=== PATIENT | male | born 1980 | race Caucasian/White ===

== ENCOUNTER 2017-02-23 06:38 | Emergency (ER) | payer BC ==
[~2017-02-23] VITALS: Ht 167.6 cm; Wt 95.4 kg
[2017-02-23 06:38] VITALS: BP 142/83
[2017-02-23] MEDS ORDERED: Z PAK (06:47)
[2017-02-23] MEDS ORDERED: AMLO5TAB2 PO (06:47)
[2017-02-23] MEDS ORDERED: ALBUTEROL MDI (06:47)
[2017-02-23] MEDS ORDERED: LISI-170 PO (06:47)
== END 2017-02-23 08:07 | disposition home or self-care (01) ==
LOC: ED 07:45
DX: J20.8 Acute bronchitis due to other specified organisms (principal); B96.89 Other specified bacterial agents as the cause of diseases classified elsewhere; I10 Essential (primary) hypertension
CPT/HCPCS: 99283

== ENCOUNTER 2018-04-02 18:02 | Inpatient (IN) | payer BC, OTHER ==
[~2018-04-02] VITALS: Ht 170.2 cm; Wt 98.9 kg
[~2018-04-02 18:02] MED LIST: ALBUTEROL MDI; AMLO-150 PO; LISI-170 PO; Z PAK
[2018-04-02] MEDS ORDERED: SODIUM CHLORIDE FLUSH 10ML SYR IVF ONE (18:30)
[2018-04-02 18:47] LABS: MICROSCOPIC NOT IND
[2018-04-02] MEDS ORDERED: ONDANSETRON 2MG/ML, 2ML ONE (18:47)
[2018-04-02] MEDS ORDERED: MORPHINE SULFATE 4 MG/ML, 1ML ONE ×2 (18:48→20:07)
[2018-04-02] MEDS: MORPHINE SULFATE 4 MG/ML, 1ML IVPush PRN ×2 (18:50→20:26)
--- NOTE | 2018-04-02 18:50 | NUR ---
pt requested 2mg MS
[2018-04-02 18:55] LABS: CULTURE INDICATED? NO
[2018-04-02] MEDS ORDERED: SODIUM CHLORIDE 0.9% 1,000ML IVBOLUS ONE ×2 (19:00→21:30)
[2018-04-02] MEDS ORDERED: ONDANSETRON 2MG/ML, 2ML IVPush ONE (19:00)
--- NOTE | 2018-04-02 19:19 | NUR ---
report given to Pawan Olivier
[2018-04-02 20:02] LABS: MEAN CORPUSCULAR HEMOGLOBIN 28.9 pg (27.5-34.5); MEAN CORPUSCULAR HGB CONC 35.5 g/dL (33.2-36.2); MEAN CORPUSCULAR VOLUME 81.3 fL (81-97); PLATELET COUNT 246 x10^3/uL (130-400); RED BLOOD COUNT 5.12 x10^6/uL (4.38-5.82); RED CELL DISTRIBUTION WIDTH 13.8 % (9.4-14.8)
[2018-04-02 20:04] LABS: ALBUMIN 2.9 g/dL (3.4-5.0); ANION GAP 12 mmol/L (5-15); CALCIUM 6.8 mg/dL (8.5-10.1); CHLORIDE 95 mmol/L (98-107); CREATININE 1.04 mg/dL (0.7-1.3)
[2018-04-02 20:12] LABS: BILIRUBIN,TOTAL 0.9 mg/dL (0.2-1.0)
[2018-04-02 20:17] LABS: ALKALINE PHOSPHATASE 129 U/L (45-117)
[2018-04-02 20:18] LABS: TOTAL PROTEIN 7.4 g/dL (6.4-8.2)
[2018-04-02 20:24] LABS: MD YES
--- NOTE | 2018-04-02 20:27 | NUR ---
PT MEDICATED PER EMAR FOR PAIN.
--- NOTE | 2018-04-02 20:40 | NUR ---
ct pending lab/creatine.
[2018-04-02 20:42] LABS: <RBC MORPHOLOGY> NORMAL; BAND#(MANUAL) 0.25 x10^3/uL; BANDS%(MANUAL) 2 % (0-7); BASOS#(MANUAL) 0.12 x10^3/uL (0-0.1); BASOS% (MANUAL) 1 % (0-1); LYMPH#(MANUAL) 1.36 x10^3/uL (1-3.4); LYMPHS% (MANUAL) 11 % (22-44); MONOS#(MANUAL) 0.25 x10^3/uL (0.3-2.7); MONOS% (MANUAL) 2 % (2-9); SEG#(MANUAL) 10.42 x10^3/uL (1.8-6.8); SEGS% (MANUAL) 84 % (42-75)
[2018-04-02 20:43] LABS: <PLATELET ESTIMATE> ADEQUATE; <PLT MORPHOLOGY> NORMAL PLT MORPH; PMNS WITH VACUOLES 1+; TOXIC GRAN 1+
[2018-04-02] MEDS ORDERED: OMNIPAQUE 350 MG/ML, 100ML BOTTLE ONE (21:01)
[2018-04-02 21:06] LABS: ACETONE, SERUM Moderate(40mg/dL) mg/dL (Negative)
[2018-04-02 21:50] LABS: ALANINE AMINOTRANSFERASE 61 U/L (12-78)
[2018-04-02 22:19] LABS: HEMOGLOBIN A1C 13.9 % (4.2-6.3)
[2018-04-02] MEDS ORDERED: D5%-0.9% NACL+KCL 20MEQ 1,000 ML IV SCH (22:30)
[2018-04-02] MEDS ORDERED: PROMETHAZINE 25 MG/ML, 1ML IM PRN (22:30)
[2018-04-02] MEDS ORDERED: ACETAMINOPHEN 325 MG TABLET PO PRN (22:30)
[2018-04-02] MEDS ORDERED: REGULAR INSULIN 62.5 UNITS in SODIUM CHLORIDE 0.9% 249.375 ML IV PRN (22:30)
--- NOTE | 2018-04-02 22:35 | NUR ---
MD BAZZI DOES NOT WANT INSULIN BOLUS, JUST DRIP AT THIS TIME.
--- NOTE | 2018-04-02 22:48 | NUR ---
INSULIN DRIP STARTED
[2018-04-02] MEDS ORDERED: HYDROmorphone 1 MG/ML, 1ML ONE (22:51)
[2018-04-02] MEDS: HYDROmorphone 2 MG/ML, 1ML IVPush PRN (22:53)
--- NOTE | 2018-04-02 22:53 | NUR ---
PT GIVEN DILUDID FOR PAIN CONTROL.
--- NOTE | 2018-04-02 23:04 | NUR ---
PT TRANSFERED TO ICU WITH LILLIE PROFESSOR OF INDUSTRIAL TECHNOLOGY. BAILEY QUINONEZ GIVEN NON DKA INSULIN PROTOCOL AND EXPLAINED HOW STARTING DOSE WAS INTIATED. BEVERLEY CORBETT AT THIS TIME DOES NOT WANT BOLUS INSULIN DOES JUST DRIP.
[2018-04-02 23:30] VITALS: BP 128/76
[2018-04-03] MEDS: POTASSIUM CHLORIDE 20 MEQ, MAGNESIUM SULFATE 1 GM, FOLIC ACID 1 MG, MVI ADULT 10 ML in ... IV SCH ×2 (00:04→23:16)
[2018-04-03] MEDS: HYDROmorphone 2 MG/ML, 1ML IVPush PRN ×7 (01:17→21:56)
[2018-04-03 04:00] VITALS: BP 111/66
[2018-04-03 04:01] LABS: BASOPHILS # (AUTO) 0.03 x10^3/uL (0-0.1); BASOPHILS % (AUTO) 0 % (0-1); EOSINOPHILS # (AUTO) 0.02 x10^3/uL (0-0.4); EOSINOPHILS % (AUTO) 0 % (1-7); LYMPHOCYTES # (AUTO) 1.35 x10^3/uL (1-3.4); LYMPHOCYTES % (AUTO) 14 % (22-44); MD NO; MEAN CORPUSCULAR HEMOGLOBIN 28.4 pg (27.5-34.5); MEAN CORPUSCULAR HGB CONC 35.5 g/dL (33.2-36.2); MEAN PLATELET VOLUME 8.9 fL (7.4-10.4); MONOCYTES # (AUTO) 0.48 x10^3/uL (0.2-0.8); MONOCYTES % (AUTO) 5 % (2-9); NEUTROPHILS # (AUTO) 8.11 x10^3/uL (1.8-6.8); NEUTROPHILS % (AUTO) 81 % (42-75); PLATELET COUNT 276 x10^3/uL (130-400); RED BLOOD COUNT 5.02 x10^6/uL (4.38-5.82); RED CELL DISTRIBUTION WIDTH 13.4 % (9.4-14.8)
[2018-04-03 04:11] LABS: ACETONE, SERUM Trace (10mg/dL) mg/dL (Negative)
[2018-04-03 04:15] LABS: ALBUMIN 2.7 g/dL (3.4-5.0); ANION GAP 7 mmol/L (5-15); CALCIUM 6.4 mg/dL (8.5-10.1); CHLORIDE 102 mmol/L (98-107)
[2018-04-03 04:24] LABS: ALKALINE PHOSPHATASE 96 U/L (45-117); BILIRUBIN,TOTAL 0.9 mg/dL (0.2-1.0); CREATININE 0.91 mg/dL (0.7-1.3); HDL CHOLESTEROL (DIRECT) 24 mg/dL (40-60); THYROID STIMULATING HORMONE 0.885 mIU/L (0.358-3.740)
[2018-04-03 04:25] LABS: TRIGLYCERIDES 2792 mg/dL (50-200)
[2018-04-03 04:26] LABS: CHOL/HDL RATIO 16.4; CHOLESTEROL, TOTAL 393 mg/dL (140-239); HDL CHOL % 6 % (26-37); TOTAL PROTEIN 6.2 g/dL (6.4-8.2)
[2018-04-03 04:41] LABS: ALANINE AMINOTRANSFERASE 43 U/L (12-78)
[2018-04-03] MEDS: LACTATED RINGERS 1,000 ML IV SCH ×3 (07:45→20:50)
[2018-04-03] MEDS: LISINOPRIL 20 MG TABLET PO SCH ×2 (09:00→20:57)
[2018-04-03] MEDS: AMLODIPINE 5 MG TABLET PO SCH (09:16)
[2018-04-03] MEDS: KETOROLAC 30 MG/1 ML IM PRN ×2 (09:27→23:00)
[2018-04-03] MEDS ORDERED: CALCIUM CHLORIDE 13.6 MEQ in SODIUM CHLORIDE 0.9% 100 ML IV ONE (12:00)
[2018-04-03] MEDS: ONDANSETRON 2MG/ML, 2ML IVPush PRN ×2 (17:55→21:56)
[2018-04-03 20:00] VITALS: BP 125/76
[2018-04-03] MEDS ORDERED: INSULIN LISPRO 100 UNITS/ML, PEN ONE (22:14)
[2018-04-03] MEDS ORDERED: INSULIN LISPRO 100 UNITS/ML, PEN SQ-INSULIN SCH (22:30)
[2018-04-04 01:00] VITALS: BP 135/87
[2018-04-04] MEDS: HYDROmorphone 2 MG/ML, 1ML IVPush PRN ×6 (01:18→21:36)
[2018-04-04] MEDS: LACTATED RINGERS 1,000 ML IV SCH ×3 (03:38→17:18)
[2018-04-04] MEDS: PANTOPROZOLE 40MG TABLET PO SCH (04:21)
[2018-04-04 04:29] LABS: MEAN CORPUSCULAR HEMOGLOBIN 26.9 pg (27.5-34.5); MEAN CORPUSCULAR HGB CONC 33.2 g/dL (33.2-36.2); MEAN CORPUSCULAR VOLUME 81.1 fL (81-97); MEAN PLATELET VOLUME 9.1 fL (7.4-10.4); PLATELET COUNT 210 x10^3/uL (130-400); RED BLOOD COUNT 5.03 x10^6/uL (4.38-5.82); RED CELL DISTRIBUTION WIDTH 14.6 % (9.4-14.8)
[2018-04-04 05:21] LABS: MD YES
[2018-04-04 05:24] LABS: ALANINE AMINOTRANSFERASE 25 U/L (12-78); ALBUMIN 2.1 g/dL (3.4-5.0); ANION GAP 8 mmol/L (5-15); CALCIUM 7.4 mg/dL (8.5-10.1); CHLORIDE 107 mmol/L (98-107); CREATININE 0.94 mg/dL (0.7-1.3)
[2018-04-04 05:24] LABS: <PLATELET ESTIMATE> ADEQUATE; <PLT MORPHOLOGY> NORMAL PLT MORPH; ANISOCYTOSIS 1+; BAND#(MANUAL) 1.01 x10^3/uL; BANDS%(MANUAL) 11 % (0-7); EOS#(MANUAL) 0.18 x10^3/uL (0.0-0.4); EOS% (MANUAL) 2 % (1-7); LYMPH#(MANUAL) 1.56 x10^3/uL (1-3.4); LYMPHS% (MANUAL) 17 % (22-44); MONOS#(MANUAL) 0.46 x10^3/uL (0.3-2.7); MONOS% (MANUAL) 5 % (2-9); SEG#(MANUAL) 5.98 x10^3/uL (1.8-6.8); SEGS% (MANUAL) 65 % (42-75)
[2018-04-04 05:32] LABS: ALKALINE PHOSPHATASE 72 U/L (45-117); BILIRUBIN,TOTAL 0.9 mg/dL (0.2-1.0); TOTAL PROTEIN 5.7 g/dL (6.4-8.2); TRIGLYCERIDES 1278 mg/dL (50-200)
[2018-04-04] MEDS: INSULIN LISPRO 100 UNITS/ML, PEN SQ-INSULIN SCH ×4 (07:54→23:00)
[2018-04-04] MEDS: INSULIN GLARGINE 100 UNITS/ML, PEN SQ-INSULIN SCH ×2 (07:55→23:00)
[2018-04-04 08:00] VITALS: BP 119/74
[2018-04-04] MEDS: AMLODIPINE 5 MG TABLET PO SCH (09:15)
[2018-04-04] MEDS: LISINOPRIL 20 MG TABLET PO SCH ×2 (09:15→21:00)
[2018-04-04 14:28] VITALS: BP 108/65
[2018-04-04] MEDS: KETOROLAC 30 MG/1 ML IV PRN ×2 (17:08→23:00)
[2018-04-04] MEDS ORDERED: ACETAMINOPHEN 650 MG SUPP ONE (17:44)
[2018-04-04] MEDS ORDERED: ACETAMINOPHEN 650 MG SUPP PR PRN (18:00)
[2018-04-04 18:30] VITALS: BP 115/67
[2018-04-04] MEDS: POTASSIUM CHLORIDE 20 MEQ, MAGNESIUM SULFATE 1 GM, FOLIC ACID 1 MG, MVI ADULT 10 ML in ... IV SCH (23:54)
[2018-04-05 01:41] VITALS: BP 108/75
[2018-04-05] MEDS: HYDROmorphone 2 MG/ML, 1ML IVPush PRN ×6 (02:14→22:57)
[2018-04-05] MEDS: KETOROLAC 30 MG/1 ML IV PRN ×3 (05:40→21:32)
[2018-04-05] MEDS: LACTATED RINGERS 1,000 ML IV SCH ×3 (05:40→22:57)
[2018-04-05] MEDS: PANTOPROZOLE 40MG TABLET PO SCH (06:02)
[2018-04-05 06:13] LABS: ALANINE AMINOTRANSFERASE 20 U/L (12-78); ALBUMIN 1.9 g/dL (3.4-5.0); ANION GAP 6 mmol/L (5-15); BASOPHILS # (AUTO) 0.03 x10^3/uL (0-0.1); BASOPHILS % (AUTO) 0 % (0-1); CALCIUM 7.8 mg/dL (8.5-10.1); CHLORIDE 110 mmol/L (98-107); CREATININE 0.92 mg/dL (0.7-1.3); EOSINOPHILS # (AUTO) 0.16 x10^3/uL (0-0.4); EOSINOPHILS % (AUTO) 2 % (1-7); LYMPHOCYTES % (AUTO) 15 % (22-44); MD NO; MEAN CORPUSCULAR HEMOGLOBIN 27.6 pg (27.5-34.5); MEAN CORPUSCULAR HGB CONC 34.2 g/dL (33.2-36.2); MEAN CORPUSCULAR VOLUME 80.7 fL (81-97); MEAN PLATELET VOLUME 8.7 fL (7.4-10.4); MONOCYTES # (AUTO) 0.54 x10^3/uL (0.2-0.8); MONOCYTES % (AUTO) 7 % (2-9); NEUTROPHILS # (AUTO) 5.62 x10^3/uL (1.8-6.8); NEUTROPHILS % (AUTO) 76 % (42-75); PLATELET COUNT 186 x10^3/uL (130-400); RED BLOOD COUNT 4.26 x10^6/uL (4.38-5.82); RED CELL DISTRIBUTION WIDTH 14.7 % (9.4-14.8)
[2018-04-05 06:15] LABS: ALKALINE PHOSPHATASE 70 U/L (45-117); BILIRUBIN,TOTAL 0.8 mg/dL (0.2-1.0); TOTAL PROTEIN 5.8 g/dL (6.4-8.2); TRIGLYCERIDES 827 mg/dL (50-200)
[2018-04-05] MEDS: INSULIN LISPRO 100 UNITS/ML, PEN SQ-INSULIN SCH ×4 (07:56→21:37)
[2018-04-05] MEDS: AMLODIPINE 5 MG TABLET PO SCH (09:55)
[2018-04-05] MEDS: LISINOPRIL 20 MG TABLET PO SCH ×2 (09:55→21:32)
[2018-04-05] MEDS: INSULIN GLARGINE 100 UNITS/ML, PEN SQ-INSULIN SCH ×2 (09:56→21:37)
[2018-04-05 10:04] VITALS: BP 130/83
[2018-04-05 13:17] VITALS: BP 106/61
[2018-04-05 20:33] VITALS: BP 110/73
[2018-04-06] MEDS: POTASSIUM CHLORIDE 20 MEQ, MAGNESIUM SULFATE 1 GM, FOLIC ACID 1 MG, MVI ADULT 10 ML in ... IV SCH (01:00)
[2018-04-06 03:00] VITALS: BP 122/79
[2018-04-06] MEDS: HYDROmorphone 2 MG/ML, 1ML IVPush PRN ×4 (03:04→21:16)
[2018-04-06] MEDS: KETOROLAC 30 MG/1 ML IV PRN ×3 (04:56→18:05)
[2018-04-06 05:29] LABS: BASOPHILS # (AUTO) 0.04 x10^3/uL (0-0.1); BASOPHILS % (AUTO) 1 % (0-1); EOSINOPHILS # (AUTO) 0.29 x10^3/uL (0-0.4); EOSINOPHILS % (AUTO) 4 % (1-7); LYMPHOCYTES # (AUTO) 1.11 x10^3/uL (1-3.4); LYMPHOCYTES % (AUTO) 14 % (22-44); MD NO; MEAN CORPUSCULAR HEMOGLOBIN 27.5 pg (27.5-34.5); MEAN CORPUSCULAR HGB CONC 33.7 g/dL (33.2-36.2); MEAN CORPUSCULAR VOLUME 81.8 fL (81-97); MONOCYTES # (AUTO) 0.73 x10^3/uL (0.2-0.8); MONOCYTES % (AUTO) 9 % (2-9); NEUTROPHILS # (AUTO) 5.59 x10^3/uL (1.8-6.8); NEUTROPHILS % (AUTO) 72 % (42-75); PLATELET COUNT 211 x10^3/uL (130-400); RED BLOOD COUNT 4.17 x10^6/uL (4.38-5.82); RED CELL DISTRIBUTION WIDTH 14.2 % (9.4-14.8)
[2018-04-06 05:32] LABS: ALANINE AMINOTRANSFERASE 35 U/L (12-78); ANION GAP 7 mmol/L (5-15); CALCIUM 7.9 mg/dL (8.5-10.1); CHLORIDE 108 mmol/L (98-107); CREATININE 0.76 mg/dL (0.7-1.3)
[2018-04-06 05:35] LABS: ALKALINE PHOSPHATASE 99 U/L (45-117); BILIRUBIN,TOTAL 1.1 mg/dL (0.2-1.0); TOTAL PROTEIN 5.9 g/dL (6.4-8.2); TRIGLYCERIDES 582 mg/dL (50-200)
[2018-04-06] MEDS: PANTOPROZOLE 40MG TABLET PO SCH (06:26)
[2018-04-06] MEDS: INSULIN GLARGINE 100 UNITS/ML, PEN SQ-INSULIN SCH ×2 (07:29→21:00)
[2018-04-06] MEDS: INSULIN LISPRO 100 UNITS/ML, PEN SQ-INSULIN SCH ×4 (07:29→21:00)
[2018-04-06] MEDS: LISINOPRIL 20 MG TABLET PO SCH ×2 (07:30→21:00)
[2018-04-06] MEDS ORDERED: BISACODYL 10 MG SUPP PR ONE (07:30)
[2018-04-06] MEDS: AMLODIPINE 5 MG TABLET PO SCH (07:30)
[2018-04-06] MEDS ORDERED: BISACODYL 10 MG SUPP PR PRN (07:30)
[2018-04-06 07:31] VITALS: BP 126/83
[2018-04-06] MEDS: LACTATED RINGERS 1,000 ML IV SCH ×2 (09:36→16:34)
[2018-04-06 14:26] VITALS: BP 105/66
[2018-04-06 19:40] VITALS: BP 119/78
[2018-04-07] MEDS: LACTATED RINGERS 1,000 ML IV SCH ×2 (00:08→07:00)
[2018-04-07 00:24] VITALS: BP 137/86
[2018-04-07] MEDS: POTASSIUM CHLORIDE 20 MEQ, MAGNESIUM SULFATE 1 GM, FOLIC ACID 1 MG, MVI ADULT 10 ML in ... IV SCH (01:00)
[2018-04-07] MEDS: KETOROLAC 30 MG/1 ML IV PRN (03:46)
[2018-04-07] MEDS: HYDROmorphone 2 MG/ML, 1ML IVPush PRN ×2 (04:41→11:16)
[2018-04-07 05:25] LABS: ALANINE AMINOTRANSFERASE 64 U/L (12-78); ANION GAP 9 mmol/L (5-15); CALCIUM 8.2 mg/dL (8.5-10.1); CHLORIDE 105 mmol/L (98-107)
[2018-04-07 05:27] LABS: ALKALINE PHOSPHATASE 106 U/L (45-117); BILIRUBIN,TOTAL 1.3 mg/dL (0.2-1.0); CREATININE 0.78 mg/dL (0.7-1.3); TOTAL PROTEIN 6.2 g/dL (6.4-8.2)
[2018-04-07 05:30] LABS: BASOPHILS # (AUTO) 0.02 x10^3/uL (0-0.1); BASOPHILS % (AUTO) 0 % (0-1); EOSINOPHILS # (AUTO) 0.33 x10^3/uL (0-0.4); EOSINOPHILS % (AUTO) 4 % (1-7); LYMPHOCYTES % (AUTO) 16 % (22-44); MD NO; MEAN CORPUSCULAR HEMOGLOBIN 26.8 pg (27.5-34.5); MEAN CORPUSCULAR HGB CONC 33.1 g/dL (33.2-36.2); MEAN CORPUSCULAR VOLUME 81.1 fL (81-97); MEAN PLATELET VOLUME 8.3 fL (7.4-10.4); MONOCYTES # (AUTO) 0.73 x10^3/uL (0.2-0.8); MONOCYTES % (AUTO) 10 % (2-9); NEUTROPHILS # (AUTO) 5.41 x10^3/uL (1.8-6.8); NEUTROPHILS % (AUTO) 70 % (42-75); PLATELET COUNT 269 x10^3/uL (130-400); RED BLOOD COUNT 4.48 x10^6/uL (4.38-5.82); RED CELL DISTRIBUTION WIDTH 14.7 % (9.4-14.8)
[2018-04-07] MEDS: INSULIN LISPRO 100 UNITS/ML, PEN SQ-INSULIN SCH ×2 (07:00→11:00)
[2018-04-07] MEDS: PANTOPROZOLE 40MG TABLET PO SCH (07:22)
[2018-04-07 07:30] VITALS: BP 134/87
[2018-04-07] MEDS: INSULIN GLARGINE 100 UNITS/ML, PEN SQ-INSULIN SCH (08:41)
[2018-04-07] MEDS: AMLODIPINE 5 MG TABLET PO SCH (08:41)
[2018-04-07] MEDS: LISINOPRIL 20 MG TABLET PO SCH (08:41)
[2018-04-07] MEDS ORDERED: POTASSIUM CHLORIDE 10% 40 MEQ/30 ML UDC PO ONE ×2 (09:00→11:00)
[2018-04-07] MEDS ORDERED: FENOFIBRATE 145 MG TABLET PO SCH (09:00)
[2018-04-07] MEDS ORDERED: MAGNESIUM SULFATE PMX 2GM/50ML 50 ML IV ONE (09:00)
[2018-04-07] MEDS ORDERED: POTASSIUM CHLORIDE 20 MEQ TAB.ER.PRT ONE (11:19)
[2018-04-07] MEDS ORDERED: FENO145T30 PO (11:24)
[2018-04-07] MEDS ORDERED: INSU100I13 SQ-INSULIN ×3 (11:24→11:51)
[2018-04-07] MEDS ORDERED: METF750T2 PO (11:24)
[2018-04-07] MEDS ORDERED: THIA100T67 PO (11:35)
[2018-04-07] MEDS ORDERED: FOLI-17 PO (11:35)
[2018-04-07] MEDS ORDERED: AMLO10TA8 PO (20:54)
[2018-04-07] MEDS ORDERED: MULT-297 PO (20:55)
[2018-04-07] MEDS ORDERED: ESOM20CA PO (20:55)
== END 2018-04-07 12:56 | disposition home or self-care (01) | DRG 439 ==
LOC: SUATTDRO 21:25 → ED 21:43 → EDIP 22:11 → CCU 23:00 → 4NOR 04-04 18:35
PROVIDERS: ADMIT Hospitalist; ATTEND Hospitalist
DX: K85.00 Idiopathic acute pancreatitis without necrosis or infection (principal); E87.1 Hypo-osmolality and hyponatremia; E78.1 Pure hyperglyceridemia; E11.9 Type 2 diabetes mellitus without complications; E83.51 Hypocalcemia; E66.9 Obesity, unspecified; F10.10 Alcohol abuse, uncomplicated; I10 Essential (primary) hypertension; L40.9 Psoriasis, unspecified; E78.5 Hyperlipidemia, unspecified; R71.8 Other abnormality of red blood cells; Z68.34 Body mass index [BMI] 34.0-34.9, adult; Z83.3 Family history of diabetes mellitus
CPT/HCPCS: 36415; 74018; 99285; J7042; 74177; 80053; 80061; 81003; 82010; 82310; 82330; 82728; 82962; 83036; 83540; 83550; 83690; 83735; 84100; 84443; 84478; 85025; 87081; 96361; 96374; 96375; 96376; G0378; J1170; J1815; J1885; J2405; J3475; J3480; Q9967; J7030; J7050; J7120

== ENCOUNTER 2018-04-07 18:13 | Inpatient (IN) | payer OTHER ==
[~2018-04-07] VITALS: Ht 170.2 cm; Wt 93.4 kg
[~2018-04-07 18:13] MED LIST changes: +FENO145T30 PO; +FOLI-17 PO; +INSU100I13 SQ-INSULIN; +METF750T2 PO; +THIA100T67 PO
--- NOTE | 2018-04-07 18:35 | NUR ---
BREAK RN: Pt to room with EDT.
--- NOTE | 2018-04-07 18:43 | NUR ---
Pt resting on shannon, c/o RUQ/RLQ pain since being d/c'd from hospital earlier today. Pt states new diagnosis of pancreatitis and DM at time of admission 5 days ago. Pt placed on monitors, VSS.
--- NOTE | 2018-04-07 18:45 | NUR ---
Lab at bedside.
--- NOTE | 2018-04-07 18:50 | NUR ---
Dr. Goetz at bedside to evaluate pt.
[2018-04-07] MEDS ORDERED: ONDANSETRON 2MG/ML, 2ML IVPush ONE (19:00)
--- NOTE | 2018-04-07 19:06 | NUR ---
REPORT FROM AMAIRANI QUINTANA
[2018-04-07] MEDS ORDERED: ONDANSETRON 2MG/ML, 2ML ONE (19:07)
[2018-04-07 19:08] LABS: BASOPHILS # (AUTO) 0.02 x10^3/uL (0-0.1); BASOPHILS % (AUTO) 0 % (0-1); EOSINOPHILS % (AUTO) 3 % (1-7); LYMPHOCYTES # (AUTO) 1.13 x10^3/uL (1-3.4); LYMPHOCYTES % (AUTO) 15 % (22-44); MD NO; MEAN CORPUSCULAR HEMOGLOBIN 27.3 pg (27.5-34.5); MEAN CORPUSCULAR HGB CONC 33.7 g/dL (33.2-36.2); MEAN PLATELET VOLUME 8.1 fL (7.4-10.4); MONOCYTES # (AUTO) 0.72 x10^3/uL (0.2-0.8); MONOCYTES % (AUTO) 9 % (2-9); NEUTROPHILS # (AUTO) 5.75 x10^3/uL (1.8-6.8); NEUTROPHILS % (AUTO) 74 % (42-75); PLATELET COUNT 310 x10^3/uL (130-400); RED BLOOD COUNT 4.72 x10^6/uL (4.38-5.82); RED CELL DISTRIBUTION WIDTH 14.6 % (9.4-14.8)
[2018-04-07] MEDS ORDERED: MORPHINE SULFATE 4 MG/ML, 1ML ONE ×2 (19:08→21:04)
[2018-04-07 19:10] LABS: ALANINE AMINOTRANSFERASE 93 U/L (12-78); ALBUMIN 2.3 g/dL (3.4-5.0); ANION GAP 9 mmol/L (5-15); CALCIUM 8.2 mg/dL (8.5-10.1); CHLORIDE 102 mmol/L (98-107); CREATININE 0.85 mg/dL (0.7-1.3)
[2018-04-07 19:12] LABS: ALKALINE PHOSPHATASE 116 U/L (45-117); BILIRUBIN,TOTAL 1.2 mg/dL (0.2-1.0); TOTAL PROTEIN 6.9 g/dL (6.4-8.2)
[2018-04-07] MEDS: MORPHINE SULFATE 4 MG/ML, 1ML IVPush PRN ×2 (19:24→21:06)
--- NOTE | 2018-04-07 19:28 | NUR ---
piv placed ,pt medicated per emar, tolerated well. bp and spo2 monitors in place. pt is awake, alert and oriented, resps even and unlabored. pt awaiting CT and dispo at this time. pt educated to provide urine sample (clean catch). urinal at bedside.
--- NOTE | 2018-04-07 19:40 | NUR ---
URINE COLLECTED AND SENT, PT TO CT. NADN AT TRANSPORT.
--- NOTE | 2018-04-07 20:29 | NUR ---
pt reports abd pain level now 4/10, declines second dose of morphine when offered. pt is a&o, resps even and unlabored. awaiting CT results and dispo at this time.
[2018-04-07 20:39] LABS: MICROSCOPIC INDICATED
[2018-04-07 20:41] LABS: CULTURE INDICATED? NO
[2018-04-07] MEDS ORDERED: AMLO10TA8 PO (20:54)
[2018-04-07] MEDS ORDERED: ESOM20CA PO (20:55)
[2018-04-07] MEDS ORDERED: MULT-297 PO (20:55)
--- NOTE | 2018-04-07 21:10 | NUR ---
pt reports right lower abd pain increased to level 7/10. pt requests secnd dose morphine. pt medicated per emar, tolerated well. bp and spo2 monitors remain in place. spo2 decreased to 91% s/p morphine, pt placed on oxgyen at 2L/min via NC. pt remains a&o with even and unlabored resps. call light in reach. awaiting medical bed assignment and dispo.
--- NOTE | 2018-04-07 21:35 | NUR ---
report given to receiving DEVI Dorsey. pt reports pain level 5/10, pt a&o, resps even and unlabored. pt pt awaiting transport to medical floor at this time.
[2018-04-07 21:55] VITALS: BP 128/80
[2018-04-07] MEDS: SODIUM CHLORIDE 0.9% 1,000 ML IV SCH (22:28)
[2018-04-07] MEDS ORDERED: POTASSIUM CHLORIDE 40 MEQ in SODIUM CHLORIDE 0.9% 500 ML IV ONE (22:30)
[2018-04-07] MEDS ORDERED: PROMETHAZINE 25 MG/ML, 1ML IM PRN (22:30)
[2018-04-07] MEDS ORDERED: ONDANSETRON 2MG/ML, 2ML IVPush PRN (22:30)
[2018-04-07] MEDS ORDERED: ONDANSETRON ODT 4 MG PO PRN (22:30)
[2018-04-07] MEDS ORDERED: BISACODYL 10 MG SUPP PR PRN (22:30)
[2018-04-07] MEDS ORDERED: POLYETHYLENE GLYCOL 17 GM PACKET PO PRN (22:30)
[2018-04-07] MEDS ORDERED: hydrALAzine 20 MG/ML, 1ML IVPush PRN (22:30)
[2018-04-07] MEDS: HEPARIN 5,000 UNITS/ML, 1ML SQ SCH (22:30)
[2018-04-07] MEDS: OXYcodone IR 5MG TABLET PO PRN ×2 (22:36→23:07)
[2018-04-07 22:44] LABS: HEMOGLOBIN A1C 13.4 % (4.2-6.3)
[2018-04-07 22:53] LABS: FREE T4 (FREE THYROXINE) 1.6 ng/dL (0.76-1.46); THYROID STIMULATING HORMONE 3.82 mIU/L (0.358-3.740)
[2018-04-08] MEDS: morphine SULFATE 10 MG/ML, 1ML IVPush PRN ×8 (00:16→21:08)
[2018-04-08 02:04] VITALS: BP 125/72
[2018-04-08] MEDS: OXYcodone IR 5MG TABLET PO PRN ×4 (02:54→22:07)
[2018-04-08] MEDS: SODIUM CHLORIDE 0.9% 1,000 ML IV SCH ×2 (03:11→10:23)
[2018-04-08 05:59] LABS: BASOPHILS # (AUTO) 0.15 x10^3/uL (0-0.1); BASOPHILS % (AUTO) 2 % (0-1); EOSINOPHILS # (AUTO) 0.23 x10^3/uL (0-0.4); EOSINOPHILS % (AUTO) 3 % (1-7); LYMPHOCYTES # (AUTO) 1.26 x10^3/uL (1-3.4); LYMPHOCYTES % (AUTO) 15 % (22-44); MD NO; MEAN CORPUSCULAR HEMOGLOBIN 27.2 pg (27.5-34.5); MEAN CORPUSCULAR HGB CONC 33.7 g/dL (33.2-36.2); MEAN CORPUSCULAR VOLUME 80.8 fL (81-97); MEAN PLATELET VOLUME 8.7 fL (7.4-10.4); MONOCYTES # (AUTO) 1.07 x10^3/uL (0.2-0.8); MONOCYTES % (AUTO) 13 % (2-9); NEUTROPHILS # (AUTO) 5.48 x10^3/uL (1.8-6.8); NEUTROPHILS % (AUTO) 67 % (42-75); PLATELET COUNT 283 x10^3/uL (130-400); RED BLOOD COUNT 4.36 x10^6/uL (4.38-5.82); RED CELL DISTRIBUTION WIDTH 14.6 % (9.4-14.8)
[2018-04-08 06:04] VITALS: BP 102/69
[2018-04-08] MEDS: HEPARIN 5,000 UNITS/ML, 1ML SQ SCH ×3 (06:19→22:30)
[2018-04-08 06:28] VITALS: BP 119/73
[2018-04-08 06:50] LABS: ALBUMIN 2.1 g/dL (3.4-5.0); ANION GAP 10 mmol/L (5-15); CALCIUM 8.5 mg/dL (8.5-10.1); CHLORIDE 105 mmol/L (98-107)
[2018-04-08 06:53] LABS: ALANINE AMINOTRANSFERASE 71 U/L (12-78); ALKALINE PHOSPHATASE 101 U/L (45-117); BILIRUBIN,TOTAL 0.9 mg/dL (0.2-1.0); CHOL/HDL RATIO 16.1; CHOLESTEROL, TOTAL 209 mg/dL (140-239); CREATININE 0.63 mg/dL (0.7-1.3); HDL CHOL % 6 % (26-37); HDL CHOLESTEROL (DIRECT) 13 mg/dL (40-60); LDL CHOLESTEROL,CALCULATED 130 mg/dL (54-169); TOTAL PROTEIN 5.7 g/dL (6.4-8.2); TRIGLYCERIDES 332 mg/dL (50-200); VLDL CHOLESTEROL 66 mg/dL (0-25)
[2018-04-08] MEDS: MULTIVITAMINS/MINERALS TABLET PO SCH (09:02)
[2018-04-08] MEDS: PANTOPRAZOLE 20MG TABLET PO SCH (09:03)
[2018-04-08] MEDS: FENOFIBRATE 145 MG TABLET PO SCH (09:03)
[2018-04-08] MEDS: AMLODIPINE 10 MG TAB PO SCH (09:03)
[2018-04-08] MEDS: FOLIC ACID 1 MG TABLET PO SCH (09:03)
[2018-04-08 12:08] VITALS: BP 109/52
[2018-04-08 12:16] VITALS: BP 37/84
[2018-04-08 19:56] VITALS: BP 106/69
[2018-04-08] MEDS: metFORMIN 500 MG TABLET PO SCH (21:07)
[2018-04-09] MEDS: morphine SULFATE 10 MG/ML, 1ML IVPush PRN ×8 (00:20→22:50)
[2018-04-09] MEDS: OXYcodone IR 5MG TABLET PO PRN ×2 (01:51→08:42)
[2018-04-09 02:19] VITALS: BP 98/62
[2018-04-09 05:06] LABS: ALANINE AMINOTRANSFERASE 61 U/L (12-78); ANION GAP 7 mmol/L (5-15); CALCIUM 8.1 mg/dL (8.5-10.1); CHLORIDE 103 mmol/L (98-107); CREATININE 0.84 mg/dL (0.7-1.3)
[2018-04-09 05:09] LABS: ALKALINE PHOSPHATASE 93 U/L (45-117); BILIRUBIN,TOTAL 1.4 mg/dL (0.2-1.0); TOTAL PROTEIN 6.2 g/dL (6.4-8.2)
[2018-04-09] MEDS: HEPARIN 5,000 UNITS/ML, 1ML SQ SCH ×3 (06:56→21:31)
[2018-04-09 07:15] VITALS: BP 124/80
[2018-04-09] MEDS: metFORMIN 500 MG TABLET PO SCH (07:23)
[2018-04-09] MEDS: MULTIVITAMINS/MINERALS TABLET PO SCH (08:13)
[2018-04-09] MEDS: FENOFIBRATE 145 MG TABLET PO SCH (08:13)
[2018-04-09] MEDS: FOLIC ACID 1 MG TABLET PO SCH (08:13)
[2018-04-09] MEDS: PANTOPRAZOLE 20MG TABLET PO SCH (08:13)
[2018-04-09] MEDS: AMLODIPINE 10 MG TAB PO SCH (08:13)
[2018-04-09] MEDS ORDERED: GLUCAGON 1 MG IM PRN (10:00)
[2018-04-09] MEDS ORDERED: DEXTROSE 4 GM TAB.CHEW PO PRN (10:00)
[2018-04-09] MEDS ORDERED: DEXTROSE 50%, 50ML SYRINGE IVPush PRN (10:00)
[2018-04-09 10:11] LABS: CLOSTRIDIUM DIFFICILE ANTIGEN NEGATIVE; CLOSTRIDIUM DIFFICILE TOXIN NEGATIVE (Negative)
[2018-04-09] MEDS: OxyconTIN ER 10 MG TAB.ER PO SCH ×2 (10:24→21:30)
[2018-04-09] MEDS: INSULIN LISPRO 100 UNITS/ML, PEN SQ-INSULIN SCH ×3 (10:59→21:00)
[2018-04-09 13:17] VITALS: BP 120/75
[2018-04-09 19:16] VITALS: BP 109/69
[2018-04-09] MEDS: SODIUM CHLORIDE FLUSH 10ML SYR IVF SCH (19:44)
[2018-04-10] MEDS ORDERED: OXYcodone IR 5MG TABLET PO ONE (00:30)
[2018-04-10] MEDS: morphine SULFATE 10 MG/ML, 1ML IVPush PRN ×4 (01:45→19:42)
[2018-04-10] MEDS: OXYcodone IR 5MG TABLET PO PRN ×5 (02:43→22:26)
[2018-04-10] MEDS: DIPHENHYDRAMINE 25 MG CAPSULE PO PRN ×3 (02:43→22:26)
[2018-04-10 02:53] VITALS: BP 112/70
[2018-04-10] MEDS: HEPARIN 5,000 UNITS/ML, 1ML SQ SCH ×3 (07:21→22:30)
[2018-04-10] MEDS: INSULIN LISPRO 100 UNITS/ML, PEN SQ-INSULIN SCH ×4 (07:25→19:42)
[2018-04-10 07:38] VITALS: BP 106/68
[2018-04-10] MEDS: AMLODIPINE 10 MG TAB PO SCH (08:06)
[2018-04-10] MEDS: MULTIVITAMINS/MINERALS TABLET PO SCH (08:07)
[2018-04-10] MEDS: FOLIC ACID 1 MG TABLET PO SCH (08:07)
[2018-04-10] MEDS: FENOFIBRATE 145 MG TABLET PO SCH (08:07)
[2018-04-10] MEDS: PANTOPRAZOLE 20MG TABLET PO SCH (08:07)
[2018-04-10] MEDS: SODIUM CHLORIDE FLUSH 10ML SYR IVF SCH ×2 (08:07→19:45)
[2018-04-10] MEDS: OxyconTIN ER 10 MG TAB.ER PO SCH ×2 (10:20→22:00)
[2018-04-10 13:55] VITALS: BP 110/67
[2018-04-10] MEDS: DOCUSATE 100 MG CAPSULE PO PRN ×2 (14:02→22:26)
[2018-04-10 18:47] VITALS: BP 121/78
[2018-04-11 01:13] VITALS: BP 115/72
[2018-04-11] MEDS: OXYcodone IR 5MG TABLET PO PRN ×3 (02:47→11:28)
[2018-04-11] MEDS: HEPARIN 5,000 UNITS/ML, 1ML SQ SCH ×2 (06:14→13:48)
[2018-04-11 06:51] VITALS: BP 165/100
[2018-04-11] MEDS: SODIUM CHLORIDE FLUSH 10ML SYR IVF SCH (07:20)
[2018-04-11] MEDS: PANTOPRAZOLE 20MG TABLET PO SCH (07:31)
[2018-04-11] MEDS: INSULIN LISPRO 100 UNITS/ML, PEN SQ-INSULIN SCH ×2 (07:37→11:31)
[2018-04-11] MEDS: MULTIVITAMINS/MINERALS TABLET PO SCH (09:35)
[2018-04-11] MEDS: AMLODIPINE 10 MG TAB PO SCH (09:35)
[2018-04-11] MEDS: FENOFIBRATE 145 MG TABLET PO SCH (09:35)
[2018-04-11] MEDS: FOLIC ACID 1 MG TABLET PO SCH (09:35)
[2018-04-11] MEDS: OxyconTIN ER 10 MG TAB.ER PO SCH (09:35)
[2018-04-11] MEDS: DOCUSATE 100 MG CAPSULE PO PRN (09:38)
[2018-04-11] MEDS ORDERED: OXYC5TAB3 PO (13:19)
[2018-04-11] MEDS ORDERED: DOCU-131 PO (13:19)
[2018-04-12] MEDS ORDERED: METF750T2 PO (14:42)
== END 2018-04-11 14:33 | disposition home or self-care (01) | DRG 440 ==
LOC: ED 19:53 → EDIP 20:46 → 3NW 21:42
PROVIDERS: ADMIT Internal Medicine; ATTEND Internal Medicine
DX: K85.00 Idiopathic acute pancreatitis without necrosis or infection (principal); D64.9 Anemia, unspecified; E11.65 Type 2 diabetes mellitus with hyperglycemia; E78.1 Pure hyperglyceridemia; E78.5 Hyperlipidemia, unspecified; E87.6 Hypokalemia; F17.210 Nicotine dependence, cigarettes, uncomplicated; I10 Essential (primary) hypertension; K76.0 Fatty (change of) liver, not elsewhere classified; L40.9 Psoriasis, unspecified; Z79.4 Long term (current) use of insulin; Z83.3 Family history of diabetes mellitus; Z79.899 Other long term (current) drug therapy
CPT/HCPCS: 36415; 74176; 74181; 80053; 80061; 81001; 82962; 83036; 83690; 83735; 84439; 84443; 85025; 87324; 96374; 96375; G0378; J2405; J3480; J1815; J2270; J7030; J7040; Q0163

== ENCOUNTER 2019-04-23 04:27 | Emergency (ER) | payer OTHER ==
[~2019-04-23] VITALS: Ht 170.2 cm; Wt 98.0 kg
[~2019-04-23 04:27] MED LIST changes: +AMLO10TA8 PO; +DOCU-131 PO; +ESOM20CA PO; +FENO145T19 PO; -FENO145T30 PO; -METF750T2 PO; +METF750T42 PO; +MULT-297 PO; +OXYC5TAB3 PO
[2019-04-23 04:30] VITALS: BP 177/110
[2019-04-23] MEDS ORDERED: BUPIVACAINE 0.25% ONE (04:46)
[2019-04-23] MEDS ORDERED: BUPIVACAINE/PF 0.5% INFIL ONE (05:00)
== END 2019-04-23 05:25 | disposition home or self-care (01) ==
LOC: ED 05:19
DX: K08.89 Other specified disorders of teeth and supporting structures (principal); I10 Essential (primary) hypertension
CPT/HCPCS: 64400; 99284; S0020